=== PATIENT | male | born 1990 | race Caucasian/White ===

== ENCOUNTER 2021-04-15 10:28 | Emergency (ER) | payer OTHER, SELFPAY ==
[2021-04-15 10:36] VITALS: BP 150/86; PULSE 72; RESP 12; TEMP 36.4; O2SAT 100
--- NOTE | 2021-04-15 11:29 | ED.URI ---
HPI - URI/Sore Throat General Chief Complaint: Upper Respiratory Infection Stated Complaint: covid symptoms Time Seen by Provider: 04/15/21 11:22 Source: patient and RN notes reviewed Mode of arrival: ambulatory Limitations: no limitations History of Present Illness HPI Narrative: Patient presents today complaining of cough, decreased smell and taste, fever, body aches. Symptoms began 5 days ago. He had a positive home COVID-19 test 3 days ago. He wanted to come in and get tested again in case his test at home was falsely positive. His daughter also tested positive at home 2 days prior, as she was likely exposed through her daycare. He has been taking ibuprofen and Sudafed with some relief. He has been vaccinated against COVID-19 MD elicited complaint: cough and nasal congestion Related Data Home Medications Medication Instructions Recorded Confirmed No Home Medications 04/15/21 04/15/21 Allergies Allergy/AdvReac Type Severity Reaction Status Date / Time No Known Allergies Allergy Unverified 04/04/16 13:56 Review of Systems Review of Systems: CONSTITUTIONAL: Denies chills, or sweats.+ Body aches, fever EYES: Denies visual changes, redness, or discharge. ENT: Denies rhinorrhea, sore throat, or otalgia.+ Decreased smell and taste, congestion CARDIOVASCULAR: Denies chest pain, palpitations, or edema. RESPIRATORY: Denies dyspnea.+ Cough GASTROINTESTINAL: Denies abdominal pain, nausea, vomiting, or diarrhea. GENITOURINARY: Denies dysuria or hematuria. SKIN: Denies rash, itching, or wounds. MUSCULOSKELETAL: Denies back pain, joint pain, or myalgia. NEUROLOGIC: Denies headache, numbness, tingling, or weakness. PSYCH: Denies depression or anxiety. PMFSH Comments At time of signature, I have reviewed and agree with nursing past medical, surgical, social and family history unless otherwise noted. Please see nursing chart for further information. There is no relevant family history pertinent to the presenting complaint Exam Narrative: GENERAL: Mildly ill-appearing, well-nourished, and in no acute distress. HEAD: Normocephalic, atraumatic. EYES: EOMI. No redness or drainage. Conjunctivae normal. ENT: Mucous membranes pink and moist. Nares clear. No rhinorrhea. TMs normal bilaterally. Throat scantly erythematous without edema or exudate. Uvula midline. NECK: Normal AROM. Supple. No lymphadenopathy. CHEST: No respiratory distress. Clear to auscultation. HEART: Regular rate and rhythm. No murmur appreciated. Normal peripheral pulses. EXTREMITIES: Normal range of motion. No edema. SKIN: Warm, dry, no rash. Capillary refill normal. Normal skin turgor. NEURO: No focal deficits. Alert and oriented x3. Gait steady. PSYCH: Normal affect. No signs of depression or anxiety. Course Course Emergency Course: Discussed with patient that a false positive test was very unlikely, especially given that his daughter also tested positive. I will not be repeating another test today. Vital Signs Vital signs: Vital Signs Temperature 97.6 F 04/15/21 10:36 Pulse Rate 72 04/15/21 10:36 Respiratory Rate 12 04/15/21 10:36 Blood Pressure 150/86 H 04/15/21 10:36 Pulse Oximetry 100 04/15/21 10:36 Temperature 97.6 F 04/15/21 10:36 Pulse Rate 72 04/15/21 10:36 Respiratory Rate 12 04/15/21 10:36 Blood Pressure 150/86 H 04/15/21 10:36 Pulse Oximetry 100 04/15/21 10:36 Reviewed. Pt has been instructed to follow up with his PCP regarding his elevated blood pressure today. MDM - URI/Sore Throat Differential Diagnosis Differential diagnosis: Likely upper respiratory infection, viral infection and other (COVID-19, pneumonia) Critical Care Time Critical Care Time Critical Care Time: No Discharge Plan Discharge Clinical Impression: COVID-19 Patient Disposition: Home, Self-Care Condition: Stable Instructions: COVID-19 (Coronavirus Disease 2019) (ED) Additional Instructions: You are posi
== END 2021-04-15 11:41 | disposition home or self-care (01) ==
PROVIDERS: Emergency Provider Nurse Practitioner; PCP Family Medicine
DX: U07.1 COVID-19 (principal)
CPT/HCPCS: 99202; G0463

== ENCOUNTER 2022-11-29 09:52 | Emergency (ER) | payer BC, SELFPAY ==
[2022-11-29 10:14] VITALS: BP 132/80; PULSE 78; RESP 16; TEMP 36.6; O2SAT 99
--- NOTE | 2022-11-29 10:14 | ECG_ITS ---
Measurements Intervals [place] Rate: 61 P: 7 MS: 175 QRS: 26 QRSD: 101 T: 11 QT: 429 QTc: 433 Interpretive Statements SINUS RHYTHM NORMAL ECG NO PREVIOUS ECG AVAILABLE FOR COMPARISON Electronically Signed On 11-29-2022 12:41:31 CDT by Jamey Andrew M.D.
--- NOTE | 2022-11-29 10:22 | ED.DIZZY ---
HPI - Dizziness General Chief Complaint: Dizziness Stated Complaint: ELEVATED HEART RATE/DIZZY/NAUSEA Time Seen by Provider: 11/29/22 10:22 Source: patient, RN notes reviewed and old records reviewed Mode of arrival: ambulatory Limitations: no limitations History of Present Illness HPI Narrative: 32 year old male presents to express care with complaints of 6 episodes in the past 9 days where he has racing heart rate, lightheaded, nausea at times. Patient reports that he has had 2 episodes where he felt close to passing out. He states that he had a similar episode earlier in summer and called his previous PCP who's office stated it would be months to get in since he hadn't been in routinely since 2018 or 2019. He states that he stopped drinking all caffeine at that time. Patient reports that he use to weight lift but hasn't routinely for 2 years and reports never using Creatine or any steroids or any pre workout drinks. Patient reports that he drinks alcohol occasionally but has not had any alcohol for a week. 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 Patient does report that his family does have history of anxiety but no known cardiac history. Patient states he has appointment with Dr James Hook on December 11. Patient reports that he had episode this morning at 0930 while at his son's basketball game where he had the racing heart feeling, nausea and felt dizziness lightheaded with some nausea, heart racing and nausea have resolved but feels some dizziness still. MD elicited complaint: dizziness, lightheadedness and other (racing heart ) Onset (ago): day(s) (6 episodes in past 9 days) Timing: episodic History of similar symptoms: Yes (mid summer) Associated symptoms: nausea and other (racing heart rate, lightheadedness) Related Data Home Medications Medication Instructions Recorded Confirmed No Home Medications 04/15/21 11/29/22 Allergies Allergy/AdvReac Type Severity Reaction Status Date / Time No Known Allergies Allergy Verified 11/29/22 10:06 Review of Systems Review of Systems: CONSTITUTIONAL: Denies fever, chills, or sweats. EYES: Denies visual changes, redness, or discharge. ENT: Denies rhinorrhea, congestion, sore throat, or otalgia. CARDIOVASCULAR: Denies chest pain,positive for palpitations, no edema. RESPIRATORY: Denies cough or dyspnea. GASTROINTESTINAL: Denies abdominal pain,occasional nausea with symptoms, no vomiting, or diarrhea. GENITOURINARY: Denies dysuria or hematuria. SKIN: Denies rash or itching. MUSCULOSKELETAL: Denies back pain, joint pain, or myalgia. NEUROLOGIC: Denies headache, numbness, or weakness,positive for episodes of dizziness, lightheadedness, near syncope X2 PSYCHIATRIC: Denies anxiety or depression. All systems reviewed & are unremarkable except as noted in HPI and below PMFSH Surgical History Surgical History (Updated 11/29/22 @ 18:44 by Nan Choi NP) History of tonsillectomy Social History Social History (Updated 11/29/22 @ 12:04 by Melecio Mantilla MD) Smoking status: Never smoker Alcohol intake: current Substance use: never Comments At time of signature, agree with nursing past medical, surgical, social and family history. There is no relevant family history pertinent to the presenting complaint Exam Narrative: GENERAL: Well-appearing, well-nourished, and in no acute distress. HEAD: Normocephalic, atraumatic. EYES: PERRLA and EOMI. ENT: Nares clear, no rhinorrhea or epistaxis. Mucous membranes moist.TM's normal ,throat pink with no swelling. NECK: Supple.no lymphadenopathy CHEST: Clear to auscultation. No respiratory distress.SAO2 99% on room air HEART: Regular rate and rhythm. No murmur heard. Normal peripheral pulses. heart rate 60's ABDOMEN: Soft, nontender, nondistended, normal active bowel sounds. EXTREMITIES: Normal range of motion. No edema. SKIN: Warm, dry, no rash. NEURO: No focal deficits. Alert
== END 2022-11-29 10:49 | disposition short-term general hospital (02) ==
PROVIDERS: Emergency Provider Registered Nurse; PCP Family Medicine
DX: R42 Dizziness and giddiness (principal); R00.2 Palpitations
CPT/HCPCS: 93005; 99213; G0463

== ENCOUNTER 2022-11-29 11:01 | Emergency (ER) | payer BC, SELFPAY ==
[2022-11-29] VITALS (12 sets, daily range): BP systolic 108–162; BP diastolic 70–100; PULSE 54–97; RESP 13–18; TEMP 36.4; O2SAT 88–100
--- NOTE | ~2022-11-29 | XR_ITS ---
EXAMINATION: XR chest 2V DATE: 11/29/2022 11:19 INDICATION: Heart palpitations and dizziness TECHNIQUE: PA and lateral views of the chest are obtained. COMPARISON: None available FINDINGS: The lungs are free of acute opacities. No pleural effusion or pneumothorax. The cardiomedia stinal silhouette is normal. There is mild thoracic spondylosis. IMPRESSION: 1. No acute cardiopulmonary abnormality. Reviewed, dictated and finalized at location A.
--- NOTE | 2022-11-29 11:07 | ECG_ITS ---
Measurements Intervals [place] Rate: 55 P: 3 IA: 177 QRS: 21 QRSD: 97 T: 6 QT: 420 QTc: 405 Interpretive Statements SINUS BRADYCARDIA NORMAL ECG NO PREVIOUS ECG AVAILABLE FOR COMPARISON Electronically Signed On 11-30-2022 10:00:50 CDT by Jamey Andrew M.D.
[2022-11-29 11:58] LABS: Basophils Percent Auto 0.2 % (0.2-1.2); Eosinophils Percent Auto 0.4 % (0-4.4); Hemoglobin 14.7 g/dL (14.0-18.0); Immature Granulocyte Absolute 0.02 K/mm3 (0.00-0.031); Immature Granulocyte Percent A 0.2 % (0-0.5); Lymphocytes Absolute Auto 1.73 K/mm3 (0.9-3.2); Lymphocytes Percent Auto 21.3 % (18.3-44.2); Mean Corpuscular HGB Conc 33.4 g/dl (32-36); Mean Corpuscular Hemoglobin 31.2 pg (26-34); Mean Corpuscular Volume 93.4 fl (80-100); Mean Platelet Volume 9.8 fl (7.4-10.4); Monocytes Absolute Auto 0.6 K/mm3 (0.1-0.6); Neutrophils Absolute Auto 5.7 K/mm3 (1.3-6.7); Neutrophils Percent Auto 70.9 % (45.5-73.1); Platelet Count Result 272 k/mm3 (150-375); Red Blood Count 4.71 M/mm3 (4.6-6.20); Red Cell Distribution Width 12.3 % (11.5-14.5); White Blood Count 8.1 K/mm3 (4.5-10.0)
--- NOTE | 2022-11-29 12:03 | ED.ARRPALP ---
HPI - Arrhythmia/Palpitations General Chief Complaint: Arrhythmia/Palpitations Stated Complaint: high hr, dizzy Time Seen by Provider: 11/29/22 11:25 History of Present Illness HPI narrative: This is a 32-year-old male, who denies past medical history presenting to the emergency department complaining of multiple episodes of palpitations and lightheadedness. Patient states over the past 2 weeks he has had intermittent episodes of palpitations lasting approximately an hour. 1 of these was associated with nausea and vomiting without blood. He denies any obvious triggers, aggravating or alleviating factors. He denies associated chest pain or shortness of breath. He states he has never lost consciousness with any of these episodes. Related Data Home Medications Medication Instructions Recorded Confirmed No Home Medications 04/15/21 11/29/22 Allergies Allergy/AdvReac Type Severity Reaction Status Date / Time No Known Allergies Allergy Verified 11/29/22 10:06 Review of Systems Review of Systems: CONSTITUTIONAL: Denies fever, chills, or sweats. CARDIOVASCULAR: Palpitations denies chest pain, palpitations, or edema. RESPIRATORY: Denies cough or dyspnea. GASTROINTESTINAL: Denies abdominal pain, nausea, vomiting, or diarrhea. GENITOURINARY: Denies dysuria or hematuria. SKIN: Denies rash or itching. MUSCULOSKELETAL: Denies back pain, joint pain, or myalgia. NEUROLOGIC: Intermittent lightheadedness denies headache, numbness, or weakness. PSYCHIATRIC: Denies anxiety or depression. PMFSH Past Medical History Medical History (Updated 11/29/22 @ 19:33 by Melecio Mantilla MD) No significant past medical history Surgical History Surgical History History of tonsillectomy Social History Social History Smoking status: Never smoker Alcohol intake: current Substance use: never Exam Narrative: GENERAL: Well-developed, well-nourished, and in no acute distress. HEAD: Normocephalic, atraumatic. EYES: PERRLA and EOMI. NECK: Supple. No adenopathy or masses. No carotid bruits or JVD CHEST: Clear to auscultation. No respiratory distress. No wheezes rales or rhonchi HEART: Regular rate and rhythm. No murmur heard. Normal peripheral pulses. ABDOMEN: Soft, nontender, nondistended, normal active bowel sounds. EXTREMITIES: Normal range of motion. No edema. SKIN: Warm, dry, no rash. NEURO: Alert and oriented x3. Moving all 4 limbs purposefully. PSYCH: Normal mood and affect. Course Course Emergency Course: 13:55 - CBC unremarkable. Chemistries demonstrate mild hyponatremia with sodium of 136 but is otherwise unremarkable. TSH within normal limits. Troponin negative. Chest x-ray unremarkable. EKG unremarkable. Review of the patient's artificial plastic eye maker while under observation unremarkable. Will discharge with recommendation for primary care follow-up. Discussed return and emergency precautions including signs/symptoms of ACS and respiratory distress. The patient voiced understanding and is comfortable with the plan. All questions answered to his satisfaction. Vital Signs Vital signs: Vital Signs Temperature 97.6 F 11/29/22 11:01 Pulse Rate 62 11/29/22 11:01 Respiratory Rate 18 11/29/22 11:01 Blood Pressure 162/100 H 11/29/22 11:01 Pulse Oximetry 100 11/29/22 11:01 Oxygen Delivery Room Air 11/29/22 11:01 Temperature 97.6 F 11/29/22 11:01 Pulse Rate 62 11/29/22 13:59 Respiratory Rate 14 11/29/22 13:59 Blood Pressure 126/90 11/29/22 13:59 Pulse Oximetry 100 11/29/22 13:59 Oxygen Delivery Room Air 11/29/22 11:01 MDM - Arrhythmia/Palpitations MDM Narrative Medical decision making narrative: Plan: Labs, imaging, EKG, cardiac monitoring, troponin, reassess Differential Diagnosis Differential diagnosis: Likely palpitations, anxiety and other
[2022-11-29 12:09] LABS: Alanine Aminotransferase 84 U/L (6-50); Albumin Level 4.7 g/dL (3.5-5.1); Alkaline Phosphatase 49 U/L (38-126); Anion Gap 6 mmol/L (8-16); Aspartate Amino Transferase 43 U/L (17-59); Bilirubin,Total 0.6 mg/dL (0.2-1.3); Blood Urea Nitrogen 13 mg/dL (9-20); Calcium 9.1 mg/dL (8.4-10.2); Carbon Dioxide 27 mmol/L (22-30); Chloride 103 mmol/L (98-107); Estimated CRCL calculation 124 ml/min; Estimated Glomerular Filt Rate > 60; Glucose 95 mg/dL (65-110); Lipase 97 U/L (23-300); Potassium 4.1 mmol/L (3.4-5.0); Sodium 136 mmol/L (137-145)
[2022-11-29 12:12] LABS: Partial Thromboplastin Time 27.3 SECONDS (22.3-36.8); Prothrombin Time 13.9 Seconds (11.1-14.7)
[2022-11-29 12:19] LABS: Troponin I < 0.012 ng/mL (0.000-0.034)
== END 2022-11-29 14:05 | disposition home or self-care (01) ==
PROVIDERS: Emergency Provider Preventive Medicine Aerospace Medicine; PCP Family Medicine
DX: R00.2 Palpitations (principal); R00.1 Bradycardia, unspecified
CPT/HCPCS: 36415; 71046; 80053; 83690; 83735; 84443; 84484; 85025; 85610; 85730; 93005; 99284

== ENCOUNTER 2023-03-03 08:48 | Outpatient (CLI) | payer BC, SELFPAY ==
[2023-03-03 18:42] LABS: Hematocrit 49.8 % (42.0-52.0); Mean Corpuscular HGB Conc 32.1 g/dl (32-36); Mean Corpuscular Hemoglobin 30.1 pg (26-34); Mean Corpuscular Volume 93.6 fl (80-100); Mean Platelet Volume 10.1 fl (7.4-10.4); Platelet Count Result 278 k/mm3 (150-375); Red Blood Count 5.32 M/mm3 (4.6-6.20); Red Cell Distribution Width 13.2 % (11.5-14.5)
[2023-03-03 20:14] LABS: Alanine Aminotransferase 50 U/L (6-50); Albumin Level 4.9 g/dL (3.5-5.1); Alkaline Phosphatase 61 U/L (38-126); Amylase 91 U/L (30-110); Anion Gap 12 mmol/L (8-16); Aspartate Amino Transferase 58 U/L (17-59); Bilirubin,Total 0.9 mg/dL (0.2-1.3); Blood Urea Nitrogen 15 mg/dL (9-20); Calcium 9.7 mg/dL (8.4-10.2); Carbon Dioxide 25 mmol/L (22-30); Chloride 100 mmol/L (98-107); Estimated Glomerular Filt Rate > 60; Glucose 95 mg/dL (65-110); Lipase 68 U/L (23-300); Potassium 4.8 mmol/L (3.4-5.0); Sodium 137 mmol/L (137-145)
== END 2023-03-03 08:49 | disposition home or self-care (01) ==
LOC: ANHBWCLAB 08:49
PROVIDERS: PCP Nurse Practitioner Adult Health; Visit Provider Nurse Practitioner Adult Health
DX: R10.11 Right upper quadrant pain (principal)
CPT/HCPCS: 36415; 80053; 82150; 83690; 85027

== ENCOUNTER 2023-03-03 10:20 | Outpatient (CLI) | payer BC, SELFPAY ==
--- NOTE | ~2023-03-03 | CT_ITS ---
EXAMINATION: CT abdomen wo con DATE: 03/03/2023 10:49 INDICATION: Right upper quadrant abdominal pain TECHNIQUE: Computed tomography (CT) of the abdomen was performed without intravenous contrast. Automa oscar exposure control and iterative reconstruction technique were employed. Exam dose: 907.80 mGy-cm total exam DLP. COMPARISON: None. FINDINGS: There is mild atelectasis at both lung bases. Heart size is within normal range. No pericar dial or pleural effusion. The liver, gallbladder, bile ducts, pancreas, pancreatic duct, spleen, and adrenal glands and kidneys appear normal. No urinary tract calculus or hydroureteronephrosis. Normal caliber of the abdominal aorta. No intraperitoneal or retroperitoneal mass lesion or adenopath y or ascites. Normal appendix. No bowel obstruction, bowel wall thickening, pneumatosis or intraperitoneal free air is detected. There are numerous shotty nonenlarged mesenteric lymph nodes. Small fat-containing umbilical hernia. No suspicious osteolytic or osteoblastic lesions. IMPRESSION: Mild atelectasis at the lung bases Normal appendix If there is concern for gallbladder disease, consider sonographic correlation; CT is less sensitive f or detection of cholelithiasis. Reviewed, dictated and finalized at Location A. Reviewed, dictated and finalized at location L. [employer]AF[employer] LEAD IMPRESSION: Mild atelectasis at the lung bases Normal appendix If there is concern for gallbladder disease, consider sonographic correlation; CT is less sensitive for detection of cholelithiasis.
--- NOTE | ~2023-03-03 | US_ITS ---
US abdomen limited DATE: 03/03/2023 11:55 INDICATION: Right upper quadrant abdominal pain TECHNIQUE: Real-time imaging of liver, pancreas, gallbladder areas COMPARISON: 03/03/2023 CT abdomen pelvis FINDINGS: No hepatic or pancreatic space-occupying mass lesion is detected. Normal hepatopedal portal venous flow. No gallstones or gallbladder wall thickening or abnormal pericholecystic fluid collection. The common bile duct measures 3.8 mm, normal. Negative sonographic Lopez's sign. IMPRESSION: Normal gallbladder Reviewed, dictated and finalized at Location A. Reviewed, dictated and finalized at location L. [employer] IMPRESSION: Normal gallbladder
== END 2023-03-03 10:21 | disposition home or self-care (01) ==
PROVIDERS: PCP Nurse Practitioner Adult Health; Visit Provider Nurse Practitioner Adult Health
DX: R10.11 Right upper quadrant pain (principal)
CPT/HCPCS: 36415; 74150; 76705; 80053; 82150; 83690; 85027

== ENCOUNTER 2023-06-17 16:09 | Emergency (ER) | payer BC, SELFPAY ==
--- NOTE | ~2023-06-17 | XR_ITS ---
EXAMINATION: XR chest 2V DATE: 06/17/2023 16:48 INDICATION: Cough TECHNIQUE: PA and lateral views of the chest are obtained. COMPARISON: 11/29/2022 FINDINGS: There are airspace opacities of the lingula and left lower lobe No pleural effusion or pneu mothorax. The cardiomediastinal silhouette is normal. The visualized bones and soft tissues are unrem arkable. IMPRESSION: 1. Airspace opacities of the lingula and left lower lobe, consistent with atelectasis versus pneumoni a. Reviewed, dictated and finalized at location F. [employer] IMPRESSION: 1. Airspace opacities of the lingula and left lower lobe, consistent with atele ctasis versus pneumonia.
[2023-06-17 16:17] VITALS: BP 137/82; PULSE 84; RESP 16; TEMP 37.4; O2SAT 99
--- NOTE | 2023-06-17 16:34 | ED.URI ---
HPI - URI/Sore Throat General Chief Complaint: Upper Respiratory Infection Stated Complaint: COUGH/CHEST CONGESTION/CHILLS/HEADACHE Time Seen by Provider: 06/17/23 16:35 Source: patient Mode of arrival: ambulatory Limitations: no limitations History of Present Illness HPI Narrative: 32-year-old male presents with cough, fatigue, body aches, chills and headache since yesterday. Patient reports that he feels something to center of chest with coughing. Patient reports that he had GI bug with vomiting last week. States at 1 time he choked and coughed up some blood. Patient is concerned for aspiration pneumonia. Denies shortness of breath. All systems reviewed and negative except as noted above. Related Data Home Medications Medication Instructions Recorded Confirmed sertraline 25 mg tablet 25 mg PO DAILY 02/18/23 06/17/23 Allergies Allergy/AdvReac Type Severity Reaction Status Date / Time No Known Allergies Allergy Verified 06/17/23 16:19 Review of Systems Review of Systems: CONSTITUTIONAL: Reports fever, chills, or sweats. EYES: Denies visual changes, redness, or discharge. ENT: Denies rhinorrhea, congestion, sore throat, or otalgia. CARDIOVASCULAR: Denies chest pain, palpitations, or edema. RESPIRATORY: Reports cough. Denies dyspnea. GASTROINTESTINAL: Denies abdominal pain, nausea, vomiting, or diarrhea. GENITOURINARY: Denies dysuria or hematuria. SKIN: Denies rash or itching. MUSCULOSKELETAL: Denies back pain, joint pain. Reports myalgia. NEUROLOGIC: Denies headache, numbness, or weakness. PSYCHIATRIC: Denies anxiety or depression. All other systems reviewed are negative, except as documented in HPI. COUNTS INCLUDE 234 BEDS AT THE [facility] Past Medical History Medical History (Updated 06/17/23 @ 17:27 by Paula Berrios NP) Anxiety No significant past medical history Surgical History Surgical History History of tonsillectomy Family History Family History (Updated 12/02/22 @ 15:19 by Shanda Francis MA) Father Depression Mother Depression Grandparent Cancer Depression Grandparent Depression Social History Social History (Updated 12/02/22 @ 15:21 by Shanda Francis MA) Smoking status: Never smoker Alcohol intake: current Alcohol use details: Beer 2-3 a week Substance use: never Lack of Transportation: No Lack of Food: Never True Current Housing: I Have Housing Concerned About Future Housing: No Difficulty Paying Gas/Electric Bills: No Difficulty Paying for Meds: No Currently Unemployed: No Education: Master's Degree or Higher Difficulty w/ Childcare or Family Care: No Living arrangements: with family Gender identity (if verbalized by the patient): Male Agree to blood products: Yes Exam Narrative: GENERAL: This is a well-nourished, well-developed patient, patient ill-appearing but no acute distress. HEAD: normocephalic, atraumatic. EYES: PERRL. Sclera clear/white. Vision is grossly intact. EARS: External ears normal, auditory canals clear and without drainage, TMs normal without perforation. Hearing grossly intact. NOSE: External nose normal with no obvious nasal discharge, nares without redness, no rhinorrhea. THROAT: Mucous membranes moist, posterior pharynx clear. NECK: Neck supple, non-tender without lymphadenopathy, masses or thyromegaly. CARDIOVASCULAR: Regular rate and rhythm without murmurs, gallops, or rubs. RESPIRATORY: Decreased lung sounds to lower lung suero otherwise clear. Breath sounds equal bilaterally. No wheezes, rales, or rhonchi. SKIN: warm, Dry, intact with no suspicious lesions or rash, good texture and turgor. NEURO: awake, alert, and oriented to person, place and time. There were no obvious focal neurologic abnormalities. EXTREMITIES: No joint tenderness, effusion, or edema noted. Course Course Level of Care: Express Care Visit Vital Signs Vital signs: Vital Signs
== END 2023-06-17 17:29 | disposition home or self-care (01) ==
PROVIDERS: Emergency Provider Nurse Practitioner Family; PCP Nurse Practitioner Adult Health
DX: J18.9 Pneumonia, unspecified organism (principal); Z20.822 Contact with and (suspected) exposure to COVID-19; F41.9 Anxiety disorder, unspecified
CPT/HCPCS: 71046; 87426; 87804; 99213; G0463

== ENCOUNTER 2024-04-09 08:03 | Emergency (ER) | payer BC, SELFPAY ==
[2024-04-09 08:03] VITALS: BP 147/88; PULSE 62; RESP 14; TEMP 36.6; O2SAT 99
[2024-04-09 08:12] VITALS: BP 133/74; PULSE 64; RESP 16; O2SAT 98
[2024-04-09 08:43] VITALS: BP 129/62; PULSE 69; RESP 17; O2SAT 97
[2024-04-09] MEDS: SODIUM CHLORIDE 0.9% IV 1,000 ML 999 ML IV CONT (08:44)
[2024-04-09] MEDS: MECLIZINE HCL 25 MG TABLET PO (08:48)
[2024-04-09 09:02] VITALS: BP 113/65; PULSE 65; RESP 14; O2SAT 97
[2024-04-09 10:00] VITALS: BP 116/81; PULSE 49; RESP 16; O2SAT 97
--- NOTE | 2024-04-09 10:19 | ED.GENADULT ---
HPI - General Adult General Chief complaint: Dizziness Stated complaint: dizzy spells Time Seen by Provider: 04/09/24 08:15 History of Present Illness HPI narrative: Patient is a 33-year-old male who presents ER with dizziness. Ongoing last couple days. Will last for couple minutes and he has to close his eyes. No specific movement that provokes a dizziness. No numbness or tingling arms or legs. No slurred speech. No recent sinus congestion/sore throat / cough. No previous history of vertigo. Related Data Allergies Allergy/AdvReac Type Severity Reaction Status Date / Time No Known Allergies Allergy Verified 06/17/23 16:19 Review of Systems Constitutional: Constitutional: Reports no additional constitutional complaints ENT: Reports dizziness, Denies nasal congestion and Denies sore throat Cardiovascular: Cardiovascular: Reports no additional cardiovascular complaints Neurologic: Reports system reviewed and no additional complaints, except as documented PMFSH Past Medical History Medical History (Updated 04/09/24 @ 10:20 by Juliano Messer MD) Anxiety No significant past medical history Surgical History Surgical History History of tonsillectomy Family History Family History (Updated 12/02/22 @ 15:19 by Shanda Francis MA) Father Depression Mother Depression Grandparent Cancer Depression Grandparent Depression Social History Social History (Updated 12/02/22 @ 15:21 by Shanda Francis MA) Smoking status: Never smoker Alcohol intake: current Alcohol use details: Beer 2-3 a week Substance use: never Lack of Transportation: No Lack of Food: Never True Current Housing: I Have Housing Concerned About Future Housing: No Difficulty Paying Gas/Electric Bills: No Difficulty Paying for Meds: No Currently Unemployed: No Education: Master's Degree or Higher Difficulty w/ Childcare or Family Care: No Living arrangements: with family Gender identity (if verbalized by the patient): Male Agree to blood products: Yes Exam Narrative: GENERAL: Well-appearing, well-nourished, and in no acute distress. HEAD: Normocephalic, atraumatic. EYES: PERRLA, EOMI ENT: Mucous membranes moist. TM's normal bilaterally. CHEST: Clear to auscultation. No respiratory distress. HEART: Regular rate and rhythm. Normal peripheral pulses. EXTREMITIES: Normal range of motion. No edema. SKIN: Warm, dry, no rash. NEURO: Alert and oriented x3. PSYCH: Normal mood and affect. Course Course Emergency Course: The patient given IV fluid and some meclizine p.o. feels well at this time. Will give supportive medication for home. Vital Signs Vital signs: Vital Signs Temperature 97.9 F 04/09/24 08:03 Pulse Rate 62 04/09/24 08:03 Respiratory Rate 14 04/09/24 08:03 Blood Pressure 147/88 H 04/09/24 08:03 Pulse Oximetry 99 04/09/24 08:03 Oxygen Delivery Room Air 04/09/24 08:03 Temperature 97.9 F 04/09/24 08:03 Pulse Rate 62 04/09/24 08:03 Respiratory Rate 14 04/09/24 08:03 Blood Pressure 147/88 H 04/09/24 08:03 Pulse Oximetry 99 04/09/24 08:03 Oxygen Delivery Room Air 04/09/24 08:03 Medical Decision Making Vital Signs Vital Signs: Vital Signs Temperature 97.9 F 04/09/24 08:03 Pulse Rate 62 04/09/24 08:03 Respiratory Rate 14 04/09/24 08:03 Blood Pressure 147/88 H 04/09/24 08:03 Pulse Oximetry 99 04/09/24 08:03 Oxygen Delivery Room Air 04/09/24 08:03 Temperature 97.9 F 04/09/24 08:03 Pulse Rate 62 04/09/24 08:03 Respiratory Rate 14 04/09/24 08:03 Blood Pressure 147/88 H 04/09/24 08:03 Pulse Oximetry 99 04/09/24 08:03 Oxygen Delivery Room Air 04/09/24 08:03 Discharge Plan Discharge Clinical Impression: Vertigo Patient Disposition: Home, Self-Care Condition: Stable Instructions: Vertigo (ED) Additional Instructions: Return to the ER if you have fever over 101F, you cannot keep down food/water, you have focal weakness in an arm/leg, or have other concerns. Patient Language: Portuguese Prescriptions: New meclizine 25 mg tablet 25 mg PO TID PRN (Reason: dizziness) Qty: 14 0RF No Action azithromycin 250 mg tablet See Rx Instructions .ROUTE .COMPLEX Qty: 6 0RF Rx Instructions: For 250 mg dose pack: take 500 mg today (day 1), then 250 mg for 4 days (days 2-5) benzonatate 200 mg capsule 200 mg PO TID PRN (Reason: cough) Qty: 20 0RF guaifenesin [Mucinex] 600 mg tablet extended release 12hr 600 mg PO BID 10 Days Qty: 20 0RF sertraline 25 mg tablet 25 mg PO DAILY Qty: 90 3RF sertraline 50 mg tablet 50 mg PO DAILY Qty: 90 3RF sertraline 100 mg tablet 100 mg PO DAILY Qty: 90 3RF Follow-up/Referrals: Dotty Burns APRN [Primary Care Provider] - 1 Week
== END 2024-04-09 10:40 | disposition home or self-care (01) ==
PROVIDERS: Emergency Provider Emergency Medicine; PCP Nurse Practitioner Adult Health
DX: R42 Dizziness and giddiness (principal)
CPT/HCPCS: 36415; 96360; 99283; A9270; J7030

== ENCOUNTER 2024-06-14 10:51 | Outpatient (CLI) | payer BC, SELFPAY ==
[2024-06-14 19:15] LABS: Alanine Aminotransferase 61 U/L (6-50); Albumin Level 4.9 g/dL (3.5-5.1); Alkaline Phosphatase 57 U/L (38-126); Anion Gap 11 mmol/L (4-12); Aspartate Amino Transferase 62 U/L (17-59); Bilirubin,Total 0.7 mg/dL (0.2-1.3); Blood Urea Nitrogen 16 mg/dL (9-20); Calcium 9.3 mg/dL (8.4-10.2); Carbon Dioxide 28 mmol/L (22-30); Chloride 100 mmol/L (98-107); Cholesterol 201 mg/dL (0-200); Estimated Glomerular Filt Rate > 60; Glucose 86 mg/dL (65-110); HDL Direct 27 mg/dL; Potassium 4.7 mmol/L (3.4-5.0); Sodium 139 mmol/L (137-145); Triglycerides 309 mg/dL (<150)
[2024-06-14 19:28] LABS: LDL Cholesterol Direct 115 mg/dL
[2024-06-14 19:31] LABS: Hematocrit 47.1 % (42.0-52.0); Hemoglobin 15.3 g/dL (14.0-18.0); Mean Corpuscular HGB Conc 32.5 g/dl (32-36); Mean Corpuscular Hemoglobin 30.2 pg (26-34); Mean Corpuscular Volume 93.1 fl (80-100); Mean Platelet Volume 9.9 fl (7.4-10.4); Platelet Count Result 236 k/mm3 (150-375); Red Blood Count 5.06 M/mm3 (4.6-6.20); Red Cell Distribution Width 13.4 % (11.5-14.5); White Blood Count 5.8 K/mm3 (4.5-10.0)
[2024-06-14 22:02] LABS: Hemoglobin A1C 5.3 % (<5.7)
== END 2024-06-14 10:52 | disposition home or self-care (01) ==
LOC: ANHBWCLAB 10:53
PROVIDERS: PCP Nurse Practitioner Adult Health; Visit Provider Nurse Practitioner Adult Health
DX: Z13.9 Encounter for screening, unspecified (principal); E66.9 Obesity, unspecified
CPT/HCPCS: 36415; 80053; 80061; 83036; 84443; 85027

== ENCOUNTER 2024-09-26 19:27 | Emergency (ER) | payer BC, SELFPAY ==
--- NOTE | ~2024-09-26 | XR_ITS ---
XR sacrum coccyx min 2V Ordering provider: Love Dorantes NP History: . fall . Comparison: None. FINDINGS: BONES: No acute fracture or dislocation. JOINTS: The sacroiliac joint spaces are normal. SOFT TISSUES: Normal. IMPRESSION: No acute osseous abnormality sacrum. Reviewed, dictated and finalized at location A.
[2024-09-26 19:30] VITALS: BP 125/79; PULSE 69; RESP 20; TEMP 37.1; O2SAT 100
--- NOTE | 2024-09-26 19:30 | ED.BACK ---
HPI - Back Pain/Injury General Chief Complaint: Back Pain/Injury Stated Complaint: Fall Injury, Lower Back Pain Time Seen by Provider: 09/26/24 19:34 Source: patient and RN notes reviewed Mode of arrival: ambulatory Limitations: no limitations History of Present Illness HPI Narrative: 34-year-old male presents with concern for tailbone pain. He reports about an hour prior to arrival he slipped and fell on a concrete steps landing on his tailbone. Reports a when he got up he slipped a little again. He reports tailbone pain, left lower back pain. Reports both of his thighs are achy. He denies weakness in any extremity. Denies loss of bowel or bladder function. Denies perianal anesthesia. Reports he took ibuprofen which helped a little bit. MD elicited complaint: back pain Related Data Allergies Allergy/AdvReac Type Severity Reaction Status Date / Time No Known Allergies Allergy Verified 09/26/24 19:34 Review of Systems Review of Systems: CONSTITUTIONAL: Denies malaise, chills, sweats, or fever. CARDIOVASCULAR: Denies chest pain, palpitations, or edema. RESPIRATORY: Denies cough or dyspnea. GASTROINTESTINAL: Denies abdominal pain, nausea, vomiting, diarrhea, loss of bowel function GENITOURINARY: Denies dysuria, hematuria, frequency, loss of bladder function. SKIN: Denies rash or itching. MUSCULOSKELETAL: Reports left low back pain and tailbone pain NEUROLOGIC: Denies numbness, weakness, or headache. All systems reviewed & are unremarkable except as noted in HPI and below PMFSH Past Medical History Medical History (Updated 09/26/24 @ 20:01 by Love Dorantes NP) Anxiety No significant past medical history Surgical History Surgical History History of tonsillectomy Family History Family History (Updated 12/02/22 @ 15:19 by Shanda Francis MA) Father Depression Mother Depression Grandparent Cancer Depression Grandparent Depression Social History Social History (Updated 12/02/22 @ 15:21 by Shanda Francis MA) Smoking status: Never smoker Alcohol intake: current Alcohol use details: Beer 2-3 a week Substance use: never Lack of Transportation: No Lack of Food: Never True Current Housing: I Have Housing Concerned About Future Housing: No Difficulty Paying Gas/Electric Bills: No Difficulty Paying for Meds: No Currently Unemployed: No Education: Master's Degree or Higher Difficulty w/ Childcare or Family Care: No Living arrangements: with family Gender identity (if verbalized by the patient): Male Agree to blood products: Yes Comments At time of signature, agree with nursing past medical, surgical, social and family history. There is no relevant family history pertinent to the presenting complaint Exam Narrative: GENERAL: Well-appearing, well-nourished, and in no acute distress. HEAD: Normocephalic, atraumatic. EYES: PERRLA and EOMI. NECK: Supple. No lymphadenopathy. CHEST: Clear to auscultation. No respiratory distress. HEART: Regular rate and rhythm. Distal pulses palpable and equal, cap refill <3 seconds ABDOMEN: Soft, nontender, nondistended, normal active bowel sounds, no palpable or pulsatile masses. No CVA tenderness MUSCULOSKELETAL: Normal range of motion and strength in all extremities; 5/5 strength with hip flexion and extension, dorsiflexion and extension, knee flexion and extension, plantar flexion and extension. Normal sensation in dermatomal distributions with sensitivity to light touch and pain. low back tenderness to palpation, lo Left paraspinal tenderness. Transfers from sitting to standing. SKIN: Warm, dry, no rash. No ecchymosis, erythema, open wounds to back. NEURO: No focal deficits. Alert and oriented x3. Normal gait. PSYCH: Normal mood and affect Course Course Emergency Course: Patient is aware of diagnosis, understands and agrees to treatment plan. Anticipatory guidance given. Patient agrees to follow-up as directed and is aware of reasons to seek care at the emergency department. Portions of this record may have been created with voice recognition software Level of Care: Express Care Visit Vital Signs Vital signs: Reviewed. MDM - Back Pain/Injury MDM Narrative Medical decision making narrative: I evaluated this in the express care. History is obtained from patient who is an independent historian and physical exam was performed.? Available medical records were reviewed. ? Exam findings and relevant testing show no acute concerns or changes; patient is non-toxic appearing and is in no distress. No risk factors or findings concerning for epidural abscess, diskitis, vertebral osteomyelitis, cord compression, cauda equina, vertebral fracture or bone malignancy, AAA, or pyelonephritis. Patient instructed to consider further imaging and workup through their primary care physician as an outpatient if symptoms persist. ? Differential diagnosis and treatment plan were discussed with the patient. Patient agrees with discussion and after shared medical decision making agrees with plan of care. All questions were answered to the patient's satisfaction. Patient is appropriate for outpatient treatment and follow-up. Critical Care Time Critical Care Time Critical Care Time: No Discharge Plan Discharge Clinical Impression: Nonspecific low back pain Patient Disposition: Home Condition: Stable Instructions: Coccyx Injury (ED), Acute Low Back Pain (ED) Additional Instructions: Please follow up with your Primary Care Doctor within 48-72 hours - call for an appointment. Walking and other gentle exercising several times a week has been shown to improve back pain; bed rest is not recommended. Take Motrin 800mg every 6-8 hours with food for the next 2-3 days, take muscle relaxers every 8 hours as needed for muscle spasm- do not drive or make any important decisions while on this medication for it can make you drowsy. You may apply ice to the area as needed. If you experience any worsening pain, swelling, numbness, weakness please go to ER. Contact your doctor or go to the emergency department if you develop problems with bladder or bowel function, weakness or loss of feeling in one or both of your legs, or any other serious concerns. Patient Language: Dominican Prescriptions: New cyclobenzaprine 10 mg tablet 10 mg PO TID PRN (Reason: muscle spasm) Qty: 20 0RF ibuprofen 800 mg tablet 800 mg PO Q6H PRN (Reason: pain) Qty: 30 0RF No Action sertraline 100 mg tablet 100 mg PO DAILY Qty: 90 3RF Zepbound 7.5 mg/0.5 mL pen injector 7.5 mg subcut WEEKLY Qty: 2 0RF fenofibrate 160 mg tablet See Rx Instructions .ROUTE .COMPLEX Qty: 90 3RF Dose Instruction: TAKE 1 TABLET BY MOUTH DAILY Rx Instructions: TAKE 1 TABLET BY MOUTH DAILY Follow-up/Referrals: Dotty Burns APRN [Primary Care Provider] - Stand Alone Forms: Work/School Release IP Time of Disposition: 20:02
== END 2024-09-26 20:06 | disposition home or self-care (01) ==
PROVIDERS: Emergency Provider Nurse Practitioner; PCP Nurse Practitioner Adult Health
DX: M54.50 Low back pain, unspecified (principal)
CPT/HCPCS: 72220; 99213; G0463

== ENCOUNTER 2024-12-16 17:18 | Emergency (ER) | payer BC, SELFPAY | END 2024-12-16 19:10 | disposition left against medical advice (07) | PROVIDERS: PCP Nurse Practitioner Adult Health | DX: Z53.21 Procedure and treatment not carried out due to patient leaving prior to being seen by health care provider (principal) | CPT/HCPCS: 99199 ==

== ENCOUNTER 2024-12-18 04:38 | Emergency (ER) | payer BC, SELFPAY ==
[2024-12-18] VITALS (11 sets, daily range): BP systolic 117–158; BP diastolic 74–98; PULSE 67–93; RESP 12–18; TEMP 36.4; O2SAT 93–100
--- NOTE | ~2024-12-18 | CT_ITS ---
EXAMINATION: CT abdomen pelvis w con DATE: 12/18/2024 05:58 INDICATION: Abdominal pain and diarrhea TECHNIQUE: Computed tomography (CT) of the abdomen and pelvis was performed with 100 mL Omnipaque-350 intravenous contrast. Automated exposure control and iterative reconstruction technique were employed. The dose-length product was 3303.21 mGy-cm. COMPARISON: 03/03/2023 FINDINGS: Minimal discoid atelectasis/scarring at the lingula. Heart size is normal. No pericardial or pleural effusion. Liver, gallbladder, spleen, pancreas, bilateral adrenal glands and kidneys are normal. Bladder is normal. Normal appendix. Fluid throughout the colon consistent with nonspecific diarrhea. There is wall thickening along moderate-sized length of ileum relatively sparing the terminal ileum consistent with ileitis. Small amount of likely reactive ascites in the lower abdomen and pelvis. No abscess or free intraperitoneal gas. No pathologically enlarged abdominal or pelvic lymphadenopathy. Bones are unremarkable. IMPRESSION: 1. Ileitis which could be infectious, inflammatory or less likely ischemic in etiology with small amount of likely reactive ascites and diarrhea. Reviewed, dictated and finalized at location A. IMPRESSION: 1. Ileitis which could be infectious, inflammatory or less likely ischemic in e tiology with small amount of likely reactive ascites and diarrhea.
--- NOTE | 2024-12-18 04:48 | ED_ITS ---
HPI - General Adult General Chief complaint: Nausea/Vomiting/Diarrhea <Horace Ramirez MD - Last Filed: 12/18/24 04:50> Stated complaint: diarrhea, abdominal pain <Horace Ramirez MD - Last Filed: 12/18/24 04:50> Time Seen by Provider: 12/18/24 04:41 <Horace Ramirez MD - Last Filed: 12/18/24 04:50> History of Present Illness HPI narrative: Patient is a 34-year-old gentleman presents emergency department chief complaint of abdominal pain diarrhea since Thursday patient states that he has had multiple bouts of diarrhea since Thursday and reports that he has been having abdominal cramping. Patient states that he started back on his at found on Thursday and reports that his symptoms started on Thursday the patient reports no fever reports that he has had no travel reports no antibiotics <Horace Ramirez MD - Last Filed: 12/18/24 04:50> Related Data Allergies/adverse reactions: Allergies Allergy/AdvReac Type Severity Reaction Status Date / Time No Known Allergies Allergy Verified 12/18/24 05:41 <Horace Ramirez MD - Last Filed: 12/18/24 04:50> Review of Systems 2 Review of Systems: A 10 system review of systems was completed on the patient and is negative except for what is stated in the HPI. Nursing and ancillary documentation was reviewed. <Horace Ramirez MD - Last Filed: 12/18/24 04:50> [facility] Past Medical History Medical History: Medical History Anxiety No significant past medical history <Horace Ramirez MD - Last Filed: 12/18/24 04:50> Surgical History Surgical History: Surgical History History of tonsillectomy <Horace Ramirez MD - Last Filed: 12/18/24 04:50> Family History Family History: Family History Father Depression Mother Depression Grandparent Cancer Depression Grandparent Depression <Horace Ramirez MD - Last Filed: 12/18/24 04:50> Social History Social History: Social History Smoking status: Never smoker Alcohol intake: current Alcohol use details: Beer 2-3 a week Substance use: never Lack of Transportation: No Lack of Food: Never True Current Housing: I Have Housing Concerned About Future Housing: No Difficulty Paying Gas/Electric Bills: No Difficulty Paying for Meds: No Currently Unemployed: No Education: Master's Degree or Higher Difficulty w/ Childcare or Family Care: No Living arrangements: with family Gender identity (if verbalized by the patient): Male Agree to blood products: Yes <Horace Ramirez MD - Last Filed: 12/18/24 04:50> Exam 2 Narrative: GENERAL: Well-appearing, well-nourished, and in no acute distress. HEAD: Normocephalic, atraumatic. EYES: PERRLA and EOMI. ENT: Nares clear, no rhinorrhea or epistaxis. Mucous membranes moist. NECK: Supple. CHEST: Clear to auscultation. No respiratory distress. HEART: Regular rate and rhythm. No murmur heard. Normal peripheral pulses. ABDOMEN: Soft, mild diffuse tenderness, nondistended, normal active bowel sounds. EXTREMITIES: Normal range of motion. No edema. SKIN: Warm, dry, no rash. NEURO: No focal deficits. Alert and oriented x3. PSYCH: Normal mood and affect. <Horace Ramirez MD - Last Filed: 12/18/24 04:50> Course Vital Signs Vital signs: Vital Signs Pulse Oximetry 98 12/18/24 04:42 Temperature 97.5 F L 12/18/24 04:43 Pulse Rate 73 12/18/24 07:14 Respiratory Rate 18 12/18/24 07:14 Blood Pressure 117/74 12/18/24 07:14 Pulse Oximetry 100 12/18/24 07:14 Oxygen Delivery Room Air 12/18/24 04:43 <Horace Ramirez MD - Last Filed: 12/18/24 04:50> Vital Signs Pulse Oximetry 98 12/18/24 04:42 Temperature 97.5 F L 12/18/24 04:43 Pulse Rate 73 12/18/24 07:14 Respiratory Rate 18 12/18/24 07:14 Blood Pressure 117/74 12/18/24 07:14 Pulse Oximetry 100 12/18/24 07:14 Oxygen Delivery Room Air 12/18/24 04:43 <Edis Soto MD - Last Filed: 12/18/24 17:05> Medical Decision Making MDM Narrative Medical decision making narrative: 34-year-old male presents emergency department for evaluation for nausea vomiting diarrhea that started Thursday. Patient is also having some abdominal pain. Patient did recently restart taking zepbound. Patient is afebrile but does have a leukocytosis of 10.5 hemoglobin 18.7. No acute abnormalities on his CMP UA was negative for infection. CT scan was ordered by the overnight physician and does show evidence of ileitis. This is thought to be secondary to the patient's recent medication change. On re-evaluation patient states he does feel improved. Patient will be advised to follow a clear liquid diet for the next 1-3 days. He will be provided nausea medications. All questions concerns were addressed patient is comfortable plan for discharge and close follow-up. < Edis Soto MD - Last Filed: 12/18/24 17:05> Differential Diagnosis Differential Diagnosis: Colitis, diverticulitis, nausea vomiting, ileitis, bowel obstruction, adverse medication reaction <Edis Soto MD - Last Filed: 12/18/24 17:05> Vital Signs Vital Signs: Vital Signs Pulse Oximetry 98 12/18/24 04:42 Temperature 97.5 F L 12/18/24 04:43 Pulse Rate 73 12/18/24 07:14 Respiratory Rate 18 12/18/24 07:14 Blood Pressure 117/74 12/18/24 07:14 Pulse Oximetry 100 12/18/24 07:14 Oxygen Delivery Room Air 12/18/24 04:43 <Horace Ramirez MD - Last Filed: 12/18/24 04:50> Vital Signs Pulse Oximetry 98 12/18/24 04:42 Temperature 97.5 F L 12/18/24 04:43 Pulse Rate 73 12/18/24 07:14 Respiratory Rate 18 12/18/24 07:14 Blood Pressure 117/74 12/18/24 07:14 Pulse Oximetry 100 12/18/24 07:14 Oxygen Delivery Room Air 12/18/24 04:43 <Edis Soto MD - Last Filed: 12/18/24 17:05> Lab Data Lab results reviewed: Yes I reviewed the patient's lab results. <Edis Soto MD - Last Filed: 12/18/24 17:05> Result diagrams: 12/18/24 04:57 12/18/24 04:57 <Horace Ramirez MD - Last Filed: 12/18/24 04:50> Labs: Lab Results 12/18/24 12/18/24 Range/Units 04:57 05:56 WBC 10.5 H (4.5-10.0) K/mm3 RBC 6.06 (4.6-6.20) M/mm3 Hgb 18.7 H D (14.0-18.0) g/dL Hct 54.2 H (42.0-52.0) % MCV 89.4 (80-100) fl MCH 30.9 (26-34) pg MCHC 34.5 (32-36) g/dl RDW 13.3 (11.5-14.5) % Plt Count 390 H D (150-375) k/mm3 MPV 9.6 (7.4-10.4) fl Immature Gran % (Auto) 0.5 (0-0.5) % Neut % (Auto) 67.2 (45.5-73.1) % Lymph % (Auto) 22.6 (18.3-44.2) % [place] % (Auto) 8.4 (2.6-8.5) % Eos % (Auto) 0.9 (0-4.4) % Baso % (Auto) 0.4 (0.2-1.2) % Lymph # (Auto) 2.37 (0.9-3.2) K/mm3 [place] # (Auto) 0.9 H (0.1-0.6) K/mm3 Eos # (Auto) 0.1 (0-0.3) K/mm3 Baso # (Auto) 0.0 (0.0-0.1) K/mm3 Abs Immat Gran (auto) 0.05 H (0.00-0.031) K/mm3 Absolute Neuts (auto) 7.0 H (1.3-6.7) K/mm3 Absolute Nucleated RBC 0.000 (0.0-0.012) K/mm3 Nucleated RBC % 0.0 (0.0-0.2) % Sodium 135 L (137-145) mmol/L Potassium 3.5 (3.4-5.0) mmol/L Chloride 102 (98-107) mmol/L Carbon Dioxide 21 L (22-30) mmol/L Anion Gap 12 (4-12) mmol/L BUN 17 (9-20) mg/dL Creatinine 1.27 (0.7-1.3) mg/dL Estim Creat Clear Calc 105 ml/min Estimated GFR > 60 (59 - ) Glucose 118 H (65-110) mg/dL Calcium 8.4 (8.4-10.2) mg/dL Total Bilirubin 1.1 (0.2-1.3) mg/dL AST 36 (17-59) U/L ALT 37 (6-50) U/L Alkaline Phosphatase 59 (38-126) U/L Total Protein 6.8 (6.3-8.2) g/dL Albumin 4.2 (3.5-5.1) g/dL Lipase 50 (23-300) U/L Urine Color Yellow (Yellow) Urine Appearance Clear (Clear) Urine pH 5.5 (5.0-9.0) Ur Specific [place] > 1.045 H (1.001-1.035) Urine Protein Negative (Negative) mg/dL Urine Glucose (UA) Negative (Negative) mg/dL Urine Ketones 1+ H (Negative) mg/dL Ur Blood (Man) Negative (Negative) Urine Nitrate Negative (Negative) Urine Bilirubin Negative (Negative) Urine Urobilinogen 0.2 (<2.0) mg/dL Leukocyte Esterase Rfl Negative (Negative) DIDIER/UL <Horace Ramirez MD - Last Filed: 12/18/24 04:50> Lab Results 12/18/24 12/18/24 Range/Units 04:57 05:56 WBC 10.5 H (4.5-10.0) K/mm3 RBC 6.06 (4.6-6.20) M/mm3 Hgb 18.7 H D (14.0-18.0) g/dL Hct 54.2 H (42.0-52.0) % MCV 89.4 (80-100) fl MCH 30.9 (26-34) pg MCHC 34.5 (32-36) g/dl RDW 13.3 (11.5-14.5) % Plt Count 390 H D (150-375) k/mm3 MPV 9.6 (7.4-10.4) fl Immature Gran % (Auto) 0.5 (0-0.5) % Neut % (Auto) 67.2 (45.5-73.1) % Lymph % (Auto) 22.6 (18.3-44.2) % [place] % (Auto) 8.4 (2.6-8.5) % Eos % (Auto) 0.9 (0-4.4) % Baso % (Auto) 0.4 (0.2-1.2) % Lymph # (Auto) 2.37 (0.9-3.2) K/mm3 [place] # (Auto) 0.9 H (0.1-0.6) K/mm3 Eos # (Auto) 0.1 (0-0.3) K/mm3 Baso # (Auto) 0.0 (0.0-0.1) K/mm3 Abs Immat Gran (auto) 0.05 H (0.00-0.031) K/mm3 Absolute Neuts (auto) 7.0 H (1.3-6.7) K/mm3 Absolute Nucleated RBC 0.000 (0.0-0.012) K/mm3 Nucleated RBC % 0.0 (0.0-0.2) % Sodium 135 L (137-145) mmol/L Potassium 3.5 (3.4-5.0) mmol/L Chloride 102 (98-107) mmol/L Carbon Dioxide 21 L (22-30) mmol/L Anion Gap 12 (4-12) mmol/L BUN 17 (9-20) mg/dL Creatinine 1.27 (0.7-1.3) mg/dL Estim Creat Clear Calc 105 ml/min Estimated GFR > 60 (59 - ) Glucose 118 H (65-110) mg/dL Calcium 8.4 (8.4-10.2) mg/dL Total Bilirubin 1.1 (0.2-1.3) mg/dL AST 36 (17-59) U/L ALT 37 (6-50) U/L Alkaline Phosphatase 59 (38-126) U/L Total Protein 6.8 (6.3-8.2) g/dL Albumin 4.2 (3.5-5.1) g/dL Lipase 50 (23-300) U/L Urine Color Yellow (Yellow) Urine Appearance Clear (Clear) Urine pH 5.5 (5.0-9.0) Ur Specific [place] > 1.045 H (1.001-1.035) Urine Protein Negative (Negative) mg/dL Urine Glucose (UA) Negative (Negative) mg/dL Urine Ketones 1+ H (Negative) mg/dL Ur Blood (Man) Negative (Negative) Urine Nitrate Negative (Negative) Urine Bilirubin Negative (Negative) Urine Urobilinogen 0.2 (<2.0) mg/dL Leukocyte Esterase Rfl Negative (Negative) DIDIER/UL <Edis Soto MD - Last Filed: 12/18/24 17:05> Discharge Plan Discharge Clinical Impression: N&V (nausea and vomiting), Diarrhea, Adverse drug reaction <Horace Ramirez MD - Last Filed: 12/18/24 04:50> Patient Disposition: Home <Horace Ramirez MD - Last Filed: 12/18/24 04:50> Condition: Stable <Horace Ramirez MD - Last Filed: 12/18/24 04:50> Instructions: Antibiotic Form, Clear Liquid Diet (ED), Acute Nausea and Vomiting (ED), Abdominal Pain (ED) <Horace Ramirez MD - Last Filed: 12/18/24 04:50> Additional Instructions: Clear liquid diet for the next 1-3 days. Zofran as needed for nausea control. Consider refraining from further doses of Zepbound. Have close follow-up with your primary care physician. <Horace Ramirez MD - Last Filed: 12/18/24 04:50> Patient Language: Persian <Horace Ramirez MD - Last Filed: 12/18/24 04:50> Prescriptions: New ondansetron 4 mg tablet,disintegrating 4 mg PO Q8H PRN (Reason: nausea and vomiting) Qty: 14 0RF No Action cyclobenzaprine 10 mg tablet 10 mg PO TID PRN (Reason: muscle spasm) Qty: 20 0RF ibuprofen 800 mg tablet 800 mg PO Q6H PRN (Reason: pain) Qty: 30 0RF fenofibrate 160 mg tablet See Rx Instructions .ROUTE .COMPLEX Qty: 90 3RF Dose Instruction: TAKE 1 TABLET BY MOUTH DAILY Rx Instructions: TAKE 1 TABLET BY MOUTH DAILY sertraline 100 mg tablet See Rx Instructions .ROUTE .COMPLEX Qty: 90 3RF Dose Instruction: TAKE 1 TABLET BY MOUTH EVERY DAY Rx Instructions: TAKE 1 TABLET BY MOUTH EVERY DAY Zepbound 7.5 mg/0.5 mL pen injector 7.5 mg subcut WEEKLY Qty: 2 0RF Zepbound 7.5 mg/0.5 mL solution 7.5 mg subcut WEEKLY Qty: 2 0RF <Horace Ramirez MD - Last Filed: 12/18/24 04:50> Follow-up/Referrals: Dotty Burns APRN [Primary Care Provider, Family Practice] <Horace Ramirez MD - Last Filed: 12/18/24 04:50>
[2024-12-18 05:03] LABS: Hematocrit 54.2 % (42.0-52.0); Hemoglobin 18.7 g/dL (14.0-18.0); Immature Granulocyte Percent A 0.5 % (0-0.5); Lymphocytes Absolute Auto 2.37 K/mm3 (0.9-3.2); Mean Corpuscular HGB Conc 34.5 g/dl (32-36); Mean Corpuscular Hemoglobin 30.9 pg (26-34); Mean Corpuscular Volume 89.4 fl (80-100); Nucleated Red Blood Cells Absolute Auto 0.000 K/mm3 (0.0-0.012); Nucleated Red Blood Cells Perc 0.0 % (0.0-0.2); Platelet Count Result 390 k/mm3 (150-375); Red Blood Count 6.06 M/mm3 (4.6-6.20); White Blood Count 10.5 K/mm3 (4.5-10.0)
[2024-12-18] MEDS: SODIUM CHLORIDE 0.9% IV 1,000 ML 999 ML IV CONT ×2 (05:10)
[2024-12-18] MEDS: ONDANSETRON INJ 4 MG/2 ML VIAL IV PUSH (05:10)
[2024-12-18 05:26] LABS: Alanine Aminotransferase 37 U/L (6-50); Albumin Level 4.2 g/dL (3.5-5.1); Alkaline Phosphatase 59 U/L (38-126); Anion Gap 12 mmol/L (4-12); Aspartate Amino Transferase 36 U/L (17-59); Bilirubin,Total 1.1 mg/dL (0.2-1.3); Blood Urea Nitrogen 17 mg/dL (9-20); Calcium 8.4 mg/dL (8.4-10.2); Carbon Dioxide 21 mmol/L (22-30); Chloride 102 mmol/L (98-107); Estimated CRCL calculation 105 ml/min; Estimated Glomerular Filt Rate > 60; Glucose 118 mg/dL (65-110); Lipase 50 U/L (23-300); Potassium 3.5 mmol/L (3.4-5.0); Sodium 135 mmol/L (137-145); Total Protein 6.8 g/dL (6.3-8.2)
[2024-12-18 06:02] LABS: Add Urine Microscopic? NO; Appearance Urine Clear (Clear); Glucose Urine UA Negative (Negative); Leukocyte Esterase Ur Negative LEU/UL (Negative); Nitrate Urine Negative (Negative); Specific Grav Ur > 1.045 (1.001-1.035)
== END 2024-12-18 10:39 | disposition home or self-care (01) ==
PROVIDERS: Emergency Provider Emergency Medicine; PCP Nurse Practitioner Adult Health
DX: R11.2 Nausea with vomiting, unspecified (principal); R19.7 Diarrhea, unspecified; T50.995A Adverse effect of other drugs, medicaments and biological substances, initial encounter
CPT/HCPCS: 36415; 74177; 80053; 81003; 83690; 85025; 96361; 96374; 99284; J2405; J7030; Q9967

== ENCOUNTER 2025-02-09 01:48 | Emergency (ER) | payer BC, SELFPAY ==
--- NOTE | ~2025-02-09 | XR_ITS ---
Examination: XR chest 1V portable Clinical History: PAIN ACROSS LOWER CHEST Comparison: 06/17/2023 Technique: Portable AP Findings: Heart size normal. Lungs clear. No acute bony abnormality. IMPRESSION: 1. No acute cardiopulmonary findings given portable technique. Reviewed, dictated and finalized at location R.
--- NOTE | 2025-02-09 01:50 | ECG_ITS ---
Test Date: 2025-02-09 02:03:25 Measurements Intervals [place] Rate: 60 P: 11 MS: 161 QRS: 34 QRSD: 102 T: 19 QT: 447 QTc: 449 Interpretive Statements SINUS RHYTHM NORMAL ECG No previous ECG available for comparison Electronically Signed On 02-09-2025 05:11:53 CDT by Dung France D.O.
--- NOTE | 2025-02-09 01:56 | ED.CHESTPAIN ---
HPI - Chest Pain General Chief Complaint: Chest Pain Stated Complaint: chest pain Time Seen by Provider: 02/09/25 01:50 History of Present Illness HPI narrative: 34-year-old male with no pertinent past medical history presenting to the emergency department today with chest tightness and chest pain. Patient states that he feels like a tight band and chest tightness underneath his chest underneath both breasts on the ribcage. No shortness of breath fever, chills, nausea, vomiting, abdominal pain, weakness or fatigue. No traumatic injuries but he does state that he has been doing heavy lifting and moving homes this last week. Had a similar episode on Thursday that resolved spontaneously. Symptoms going on for 2 hours and he took a Tylenol without any relief. No other injuries. Pain woke up from sleep. Was otherwise in his normal state of health. No cardiac history of strong family history of cardiac disease. No leg swelling or calf asymmetry noted. Related Data Allergies Allergy/AdvReac Type Severity Reaction Status Date / Time No Known Allergies Allergy Verified 02/09/25 01:48 Review of Systems Review of Systems: As reviewed [facility] Past Medical History Medical History Anxiety No significant past medical history Surgical History Surgical History History of tonsillectomy Family History Family History Father Depression Mother Depression Grandparent Cancer Depression Grandparent Depression Social History Social History Smoking status: Never smoker Alcohol intake: current Alcohol use details: Beer 2-3 a week Substance use: never Lack of Transportation: No Lack of Food: Never True Current Housing: I Have Housing Concerned About Future Housing: No Difficulty Paying Gas/Electric Bills: No Difficulty Paying for Meds: No Currently Unemployed: No Education: Master's Degree or Higher Difficulty w/ Childcare or Family Care: No Living arrangements: with family Gender identity (if verbalized by the patient): Male Agree to blood products: Yes Exam Narrative: GENERAL: [Well-appearing, well-nourished, and in no acute distress.] HEAD: [Normocephalic, atraumatic.] EYES: [PERRLA and EOMI.] ENT: Nares clear, no rhinorrhea or epistaxis. Mucous membranes moist. NECK: Supple. CHEST: [Clear to auscultation. No respiratory distress.] HEART: [Regular rate and rhythm]. No murmur heard. [Normal peripheral pulses.] ABDOMEN: [Soft, nondistended], [nontender], [No rigidity or guarding] EXTREMITIES: Normal range of motion. [No edema.] SKIN: Warm, dry, no rash. NEURO: [No focal deficits]. Alert and oriented [x3.] PSYCH: [Normal mood and affect.] Course Vital Signs Vital signs: Vital Signs Temperature 36.6 C 02/09/25 02:00 Pulse Rate 77 02/09/25 02:00 Respiratory Rate 18 02/09/25 02:00 Blood Pressure 142/98 H 02/09/25 02:00 Pulse Oximetry 97 02/09/25 02:00 Oxygen Delivery Room Air 02/09/25 02:00 Temperature 36.6 C 02/09/25 02:00 Pulse Rate 77 02/09/25 02:00 Respiratory Rate 18 02/09/25 02:00 Blood Pressure 142/98 H 02/09/25 02:00 Pulse Oximetry 97 02/09/25 02:00 Oxygen Delivery Room Air 02/09/25 02:00 MDM - Chest Pain MDM Narrative Medical decision making narrative: 34-year-old male with no pertinent past medical history presenting to the emergency department today with chest tightness and chest pain. Patient states that he feels like a tight band and chest tightness underneath his chest underneath both breasts on the ribcage. No shortness of breath fever, chills, nausea, vomiting, abdominal pain, weakness or fatigue. No traumatic injuries but he does state that he has been doing heavy lifting and moving homes this last week. Had a similar episode on Thursday that resolved spontaneously. Symptoms going on for 2 hours and he took a Tylenol without any relief. No other injuries. Pain woke up from sleep. Was otherwise in his normal state of health. No cardiac history of strong family history of cardiac disease. No leg swelling or calf asymmetry noted. Patient hemodynamically stable, blood pressure 14 2/98, heart rate 66, respiratory rate 16, 97% on room air. Overall well-appearing not any distress. No signs of calf asymmetry. 2+ symmetric pulses throughout. No signs of skin irritation or bruising. No step-offs deformities or crepitus with palpation. Clear lungs. Suspect musculoskeletal chest pain and tightness secondary to heavy lifting and moving this week but after rule out cardiac etiology and other potential sources like pneumonia infection or pneumothorax. Chest x-ray, EKG, troponin, basic laboratory studies obtained. Placed on awake overnight monitor. Given Pepcid and Toradol and re-evaluated. Patient's workup is unrevealing. Chest x-ray independently reviewed shows no acute cardiopulmonary process. No leukocytosis or anemia. Negative troponin. LFTs only mildly elevated but normal bilirubin. Previous LFTs also elevated. Patient is afebrile with normal vital signs otherwise. EKG normal. Safe for discharge with PCP follow-up. Given prescriptions for Pepcid and Toradol as needed for several days. Medical Records Data Attestation: I reviewed the patient's medical records. Lab Data Attestation: I reviewed the patient's lab results. 02/09/25 02:04 02/09/25 02:04 Labs: Lab Results 02/09/25 Range/Units 02:04 WBC 6.1 (4.5-10.0) K/mm3 RBC 4.90 (4.6-6.20) M/mm3 Hgb 14.8 D (14.0-18.0) g/dL Hct 44.3 (42.0-52.0) % MCV 90.4 (80-100) fl MCH 30.2 (26-34) pg MCHC 33.4 (32-36) g/dl RDW 13.3 (11.5-14.5) % Plt Count 219 (150-375) k/mm3 MPV 9.4 (7.4-10.4) fl Immature Gran % (Auto) 0.2 (0-0.5) % Neut % (Auto) 59.6 (45.5-73.1) % Lymph % (Auto) 31.1 (18.3-44.2) % [place] % (Auto) 7.6 (2.6-8.5) % Eos % (Auto) 1.2 (0-4.4) % Baso % (Auto) 0.3 (0.2-1.2) % Lymph # (Auto) 1.89 (0.9-3.2) K/mm3 [place] # (Auto) 0.5 (0.1-0.6) K/mm3 Eos # (Auto) 0.1 (0-0.3) K/mm3 Baso # (Auto) 0.0 (0.0-0.1) K/mm3 Abs Immat Gran (auto) 0.01 (0.00-0.031) K/mm3 Absolute Neuts (auto) 3.6 (1.3-6.7) K/mm3 Absolute Nucleated RBC 0.000 (0.0-0.012) K/mm3 Nucleated RBC % 0.0 (0.0-0.2) % PT 13.1 (11.1-14.7) Seconds INR 1.0 APTT 26.9 (22.3-36.8) Seconds Sodium 138 (137-145) mmol/L Potassium 3.9 (3.4-5.0) mmol/L Chloride 103 (98-107) mmol/L Carbon Dioxide 25 (22-30) mmol/L Anion Gap 10 (4-12) mmol/L BUN 16 (9-20) mg/dL Creatinine 0.95 (0.7-1.3) mg/dL Estim Creat Clear Calc 142 ml/min Estimated GFR > 60 (59 - ) Glucose 113 H (65-110) mg/dL Calcium 9.1 (8.4-10.2) mg/dL Total Bilirubin 0.8 (0.2-1.3) mg/dL AST 72 H (17-59) U/L ALT 59 H (6-50) U/L Alkaline Phosphatase 69 (38-126) U/L Troponin I < 0.012 (0.000-0.034) ng/mL Total Protein 7.7 (6.3-8.2) g/dL Albumin 4.9 (3.5-5.1) g/dL Lipase 128 (23-300) U/L Imaging Data Attestation: I personally reviewed and interpreted this imaging study as follows: My impression: No acute cardiopulmonary process per my interpretation Discharge Plan Discharge Clinical Impression: Chest pain Patient Disposition: Home Condition: Stable Instructions: Antibiotic Form, Chest Pain (ED), Chest Wall Pain (ED) Additional Instructions: No signs of any cardiac anomalies. Chest x-ray normal. No signs of any concern on your EKG or laboratory studies at this time. Likely musculoskeletal chest wall pain. We have prescribed you some anti-inflammatories to take for pain control. Return with any emergent concerns. Follow-up with your regular primary doctor. Patient Language: Telugu Prescriptions: New ketorolac 10 mg tablet 10 mg PO Q8H PRN (Reason: pain) 5 Days Qty: 20 0RF Rx Instructions: maximum total duration of 5 days from all oral, intranasal, or parenteral formulations famotidine [Pepcid] 20 mg tablet 20 mg PO BID Qty: 20 0RF ketorolac 10 mg tablet 10 mg PO Q8H PRN (Reason: pain) 5 Days Qty: 20 0RF Rx Instructions: maximum total duration of 5 days from all oral, intranasal, or parenteral formulations famotidine [Pepcid] 20 mg tablet 20 mg PO BID Qty: 20 0RF No Action cyclobenzaprine 10 mg tablet 10 mg PO TID PRN (Reason: muscle spasm) Qty: 20 0RF ibuprofen 800 mg tablet 800 mg PO Q6H PRN (Reason: pain) Qty: 30 0RF ondansetron 4 mg tablet,disintegrating 4 mg PO Q8H PRN (Reason: nausea and vomiting) Qty: 14 0RF fenofibrate 160 mg tablet See Rx Instructions .ROUTE .COMPLEX Qty: 90 3RF Dose Instruction: TAKE 1 TABLET BY MOUTH DAILY Rx Instructions: TAKE 1 TABLET BY MOUTH DAILY sertraline 100 mg tablet See Rx Instructions .ROUTE .COMPLEX Qty: 90 3RF Dose Instruction: TAKE 1 TABLET BY MOUTH EVERY DAY Rx Instructions: TAKE 1 TABLET BY MOUTH EVERY DAY Zepbound 7.5 mg/0.5 mL pen injector 7.5 mg subcut WEEKLY Qty: 2 0RF Zepbound 7.5 mg/0.5 mL solution 7.5 mg subcut WEEKLY Qty: 2 0RF Follow-up/Referrals: Dotty Burns APRN [Primary Care Provider, [facility]] Time of Disposition: 02:54
[2025-02-09 01:59] VITALS: PULSE 75; RESP 16; O2SAT 97
[2025-02-09 02:00] VITALS: BP 140/86; BP 142/98; PULSE 63; PULSE 77; RESP 17; RESP 18; TEMP 36.6; O2SAT 97; O2SAT 98
[2025-02-09] MEDS: KETOROLAC 30 MG/ML VIAL (*BKC) IV PUSH (02:07)
[2025-02-09] MEDS: FAMOTIDINE 20 MG/2 ML VIAL IV PUSH (02:07)
[2025-02-09] MEDS: ASPIRIN 81 MG CHEWABLE TABLET 324 MG PO (02:07)
[2025-02-09 02:10] LABS: Hematocrit 44.3 % (42.0-52.0); Hemoglobin 14.8 g/dL (14.0-18.0); Immature Granulocyte Percent A 0.2 % (0-0.5); Lymphocytes Absolute Auto 1.89 K/mm3 (0.9-3.2); Mean Corpuscular HGB Conc 33.4 g/dl (32-36); Mean Corpuscular Hemoglobin 30.2 pg (26-34); Mean Corpuscular Volume 90.4 fl (80-100); Nucleated Red Blood Cells Absolute Auto 0.000 K/mm3 (0.0-0.012); Nucleated Red Blood Cells Perc 0.0 % (0.0-0.2); Platelet Count Result 219 k/mm3 (150-375); Red Blood Count 4.90 M/mm3 (4.6-6.20); White Blood Count 6.1 K/mm3 (4.5-10.0)
[2025-02-09 02:15] VITALS: PULSE 63; RESP 15; O2SAT 96
[2025-02-09 02:23] LABS: Alanine Aminotransferase 59 U/L (6-50); Albumin Level 4.9 g/dL (3.5-5.1); Alkaline Phosphatase 69 U/L (38-126); Anion Gap 10 mmol/L (4-12); Aspartate Amino Transferase 72 U/L (17-59); Bilirubin,Total 0.8 mg/dL (0.2-1.3); Blood Urea Nitrogen 16 mg/dL (9-20); Calcium 9.1 mg/dL (8.4-10.2); Carbon Dioxide 25 mmol/L (22-30); Chloride 103 mmol/L (98-107); Estimated CRCL calculation 142 ml/min; Estimated Glomerular Filt Rate > 60; Glucose 113 mg/dL (65-110); Lipase 128 U/L (23-300); Potassium 3.9 mmol/L (3.4-5.0); Sodium 138 mmol/L (137-145); Total Protein 7.7 g/dL (6.3-8.2)
[2025-02-09 02:34] LABS: INR 1.0; Prothrombin Time 13.1 Seconds (11.1-14.7); Troponin I < 0.012 ng/mL (0.000-0.034)
[2025-02-09 02:35] LABS: Partial Thromboplastin Time 26.9 Seconds (22.3-36.8)
== END 2025-02-09 03:20 | disposition home or self-care (01) ==
PROVIDERS: Emergency Provider Student in an Organized Health Care Education/Training Program; PCP Nurse Practitioner Adult Health
DX: R07.9 Chest pain, unspecified (principal)
CPT/HCPCS: 36415; 71045; 80053; 83690; 84484; 85025; 85610; 85730; 93005; 96374; 96375; 99284; A9270; J1885